=== PATIENT | male | born 1950 ===

== ENCOUNTER 2025-03-20 06:20 | Day surgery (SDC) | payer MEDICARE, SELFPAY | END 2025-03-20 15:01 | disposition home or self-care (01) | LOC: GI 06:20 | PROVIDERS: ATTENDING PHYSICIAN Internal Medicine | DX: R13.10 Dysphagia, unspecified (principal); K22.89 Other specified disease of esophagus; K31.89 Other diseases of stomach and duodenum; K20.90 Esophagitis, unspecified without bleeding | CPT/HCPCS: 43239; 88305; 88342 ==